=== PATIENT | male | born 1985 | race Caucasian/White ===

== ENCOUNTER 2017-03-06 17:50 | Emergency (ER) | payer MEDICARE, MEDICAID, BC ==
[2017-03-06] MEDS ORDERED: LEVETIRACETAM 1500 MG/NACL-ISO 100 ML IV ONE (18:45)
[2017-03-06] MEDS ORDERED: NORMAL SALINE 1000 ML 1,000 ML IV ONE (18:45)
[2017-03-06] MEDS ORDERED: LEVETIRACETAM INJ/PF 500 MG/5 ML SDV IV ONE (19:14)
[2017-03-06 19:29] LABS: ABSOLUTE BASOPHILS # (AUTO) 0.1 10^3/uL (0.0-0.2); ABSOLUTE EOSINOPHILS # (AUTO) 0.1 10^3/uL (0.0-0.6); ABSOLUTE LYMPHOCYTES (AUTO) 3.6 10^3/uL (0.5-4.7); BASOPHILS % (AUTO) 0.8 % (0-2); HEMATOCRIT 39.6 % (37.9-51.0); HGB HCT DIFFERENCE -0.6; LYMPHOCYTES % (AUTO) 28.2 % (13-45); MEAN CORPUSCULAR HEMOGLOBIN 26.8 pg (27.0-33.4); MEAN CORPUSCULAR HGB CONC 32.8 g/dL (32.0-36.0); MEAN CORPUSCULAR VOLUME 82 fl (80-97); MONOCYTES % (AUTO) 7.5 % (3-13); RED BLOOD COUNT 4.85 10^6/uL (4.35-5.55); RED CELL DISTRIBUTION WIDTH 14.7 % (11.5-14.0); SEGMENTED NEUTROPHILS % (AUTO) 62.5 % (42-78); WHITE BLOOD COUNT 12.8 10^3/uL (4.0-10.5)
[2017-03-06 19:29] LABS: APPEARANCE,URINE CLEAR; BILIRUBIN,URINE NEGATIVE (NEGATIVE); GLUCOSE, URINE NEGATIVE (NEGATIVE); KETONES,URINE NEGATIVE (NEGATIVE); LEUKOCYTE ESTERASE,URINE NEGATIVE (NEGATIVE); NITRITE,URINE NEGATIVE (NEGATIVE); PROTEIN,URINE NEGATIVE (NEGATIVE); URINE SPECIFIC GRAVITY 1.023; UROBILINOGEN,URINE NEGATIVE mg/dL (<2.0)
--- NOTE | 2017-03-06 19:31 | ER Document Report ---
ED Seizure - General Mode of Arrival: Medic Information source: Patient - HPI Patient complains to provider of: History of seizures Current seizure medications: Other - Dilantin Post-ictal symptoms: Headache, Other - Dizziness and lightheadedness Injuries: None <DELPHINE VIZCARRA - Last Filed: 03/06/17 19:55> <NIKJESSICA YVONNE - Last Filed: 03/06/17 20:34> - General Chief Complaint: Probable Seizure Stated Complaint: POSSIBLE SEIZURE Time Seen by Provider: 03/06/17 18:31 Notes: Patient is a 31-year-old male presenting to the emergency department for a possible seizure. Patient has a history of seizures and takes Dilantin 100 mg 3 times per day. Patient states he has missed some of those doses. Patient's seizure occurred just prior to arrival and he states that he was not feeling good so he laid down and then he blacked out for 2-3 minutes. States he awoke in the same position that he was initially in prior to the possible seizure. Patient states that he took Dilantin at 13:00 today. Patient complains of a headache, dizziness and lightheadedness. Patient states that he has not been drinking enough water or fluids. Patient states she does not have a neurologist in the area since he recently moved here. (DELPHINE VIZCARRA) Past Medical History - General Information source: Patient - Social History Smoking Status: Never Smoker Cigarette use (# per day): No Chew tobacco use (# tins/day): No Frequency of alcohol use: None Drug Abuse: None Family History: None Patient has suicidal ideation: No Patient has homicidal ideation: No Neurological Medical History: Reports: Hx Seizures Endocrine Medical History: Reports: Hx Diabetes Mellitus Type 2 Surgical Hx: Negative <DELPHINE VIZCARRA - Last Filed: 03/06/17 19:55> Review of Systems - Review of Systems Constitutional: No symptoms reported EENT: No symptoms reported Cardiovascular: See HPI, Dizziness, Lightheaded Respiratory: No symptoms reported Gastrointestinal: No symptoms reported Genitourinary: No symptoms reported Male Genitourinary: No symptoms reported Musculoskeletal: No symptoms reported Skin: No symptoms reported Hematologic/Lymphatic: No symptoms reported Neurological/Psychological: See HPI, Seizure, Headaches -: Yes All other systems reviewed and negative <DELPHINE VIZCARRA - Last Filed: 03/06/17 19:55> Physical Exam - Vital signs Interpretation: Normal - General General appearance: Appears well, Alert - HEENT Head: Normocephalic, Atraumatic Eyes: Normal Pupils: PERRL Mucous membranes: Dry - Respiratory Respiratory status: No respiratory distress Chest status: Nontender Breath sounds: Normal Chest palpation: Normal - Cardiovascular Rhythm: Regular Heart sounds: Normal auscultation Murmur: No - Abdominal Inspection: Normal Distension: No distension Bowel sounds: Normal Tenderness: Nontender Organomegaly: No organomegaly - Back Back: Normal, Nontender - Extremities General upper extremity: Normal inspection, Nontender, Normal color, Normal ROM , Normal temperature General lower extremity: Normal inspection, Nontender, Normal color, Normal ROM , Normal temperature, Normal weight bearing. No: Jake's sign - Neurological Neuro grossly intact: Yes Cognition: Normal Orientation: AAOx4 [place] Coma Scale Eye Opening: Spontaneous Sally Coma Scale Verbal: Oriented [place] Coma Scale Motor: Obeys Commands Sally Coma Scale Total: 15 Speech: Normal Motor strength normal: LUE, RUE, LLE, RLE Sensory: Normal - Psychological Associated symptoms: Normal affect, Normal mood - Skin Skin Temperature: Warm Skin Moisture: Dry Skin Color: Normal <JESSICA ZARAGOZA - Last Filed: 03/06/17 20:34> - Vital signs Vitals: Resp BP Pulse Ox 15 127/87 H 94 03/06/17 18:06 03/06/17 18:06 03/06/17 18:06 Course - Laboratory Result Diagrams: 03/06/17 19:09 03/06/17 19:09 <DELPHINE VIZCARRA - Last Filed: 03/06/17 19:55> - Laboratory Result Diagrams: 03/06/17 19:09 03/06/17 19:09 <JESSICA ZARAGOZA - Last Filed: 03/06/17 20:34> - Re-evaluation Re-evalutation: 03/06/17 20:33 Patient is a 31-year-old male who believes he had a seizure today. He did not fall or hit his head. Patient states that he felt it coming on he sat down. Patient is supposed to be taking Dilantin but he has not been taking it recently. Work within normal limits. No further seizure activity. Patient has been loaded with Keppra. He is to take his Dilantin at home as prescribed and follow-up with his neurologist. Return if any worsening or concerning symptoms. Stable for discharge. Patient would like to leave as he has a ride but cannot drive after dark. (JESSICA ZARAGOZA) - Vital Signs Vital signs: Temp Pulse Resp BP Pulse Ox 98.0 F 13 115/70 94 03/06/17 18:25 03/06/17 19:01 03/06/17 19:01 03/06/17 19:01 - Laboratory Laboratory results interpreted by me: 03/06/17 19:09 WBC 12.8 H Hgb 13.0 L MCH 26.8 L RDW 14.7 H Discharge <DELPHINE VIZCARRA - Last Filed: 03/06/17 19:55> <JESSICA ZARAGOZA - Last Filed: 03/06/17 20:34> - Discharge Clinical Impression: Seizure Condition: Stable Disposition: HOME, SELF-CARE Instructions: Seizure, Known Epileptic ([facility]) Additional Instructions: Please take your medications as prescribed so you do not have a seizure. Scribe Attestation: 03/06/17 20:34 I personally performed the services described in the documentation, reviewed and edited the documentation which was dictated to the scribe in my presence, and it accurately records my words and actions. (JESSICA ZARAGOZA) Scribe Documentation - Scribe Written by Teresa:: Teresa Chakraborty 03/06/17 19:55 acting as scribe for :: Nik <DELPHINE VIZCARRA - Last Filed: 03/06/17 19:55>
[2017-03-06 19:37] LABS: ANION GAP 10 (5-19); BLOOD UREA NITROGEN 13 mg/dL (7-20); CALCIUM 9.4 mg/dL (8.4-10.2); CARBON DIOXIDE 27 mmol/L (22-30); CHLORIDE 102 mmol/L (98-107); CREATININE RESULT 0.56 mg/dL (0.52-1.25); GLUCOSE 99 mg/dL (75-110); POTASSIUM 4.2 mmol/L (3.6-5.0); SODIUM 138.6 mmol/L (137-145)
[2017-03-06 21:16] VITALS: BP 127/80
== END 2017-03-06 20:26 | disposition home or self-care (01) ==
LOC: ER 17:50
DX: R56.9 Unspecified convulsions (principal); R51 Headache; R42 Dizziness and giddiness
CPT/HCPCS: 99284; 96374; 36415; 82962; 80185; 85025; 80048; 81001; J7030; J1953

== ENCOUNTER 2017-03-31 14:10 | Emergency (ER) | payer MEDICARE, MEDICAID ==
--- NOTE | 2017-03-31 15:04 | ER Document Report ---
ED Medical Screen (RME) - General Chief Complaint: Psych Problem Stated Complaint: SUICIDAL IDEATION Time Seen by Provider: 03/31/17 14:56 Mode of Arrival: Ambulatory Information source: Patient TRAVEL OUTSIDE OF THE [place] IN LAST 30 DAYS: No - HPI Onset: Last week Onset/Duration: Gradual, Constant Quality of pain: No pain Associated Symptoms: None Exacerbated by: Denies Recently seen / treated by doctor: Yes Notes: 03/31/17 15:03 Patient is a 31-year-old male with known history of mental health issues and previous suicide attempts. Patient reports a one-week history of suicidal ideations due to problems with his current living arrangement. Patient denies any actual attempt but does have thoughts of either overdosing or cutting himself. Patient went to [place] yesterday and states he is not better resulting in his ED visit today. - Related Data Allergies/Adverse Reactions: lamotrigine [From Lamictal] Allergy (Verified 03/31/17 14:16) quetiapine [From Seroquel] Allergy (Verified 03/31/17 14:16) Past Medical History - General Information source: Patient, [facility] Records - Social History Frequency of alcohol use: None Drug Abuse: None Pulmonary Medical History: Reports: Hx Asthma Neurological Medical History: Reports: Hx Seizures Endocrine Medical History: Reports: Hx Diabetes Mellitus Type 2 Renal/ Medical History: Denies: Hx Peritoneal Dialysis Past Surgical History: Reports: Hx Orthopedic Surgery - right lower leg Review of Systems - Review of Systems Neurological/Psychological: Suicidal ideation -: Yes All other systems reviewed and negative Physical Exam - Vital signs Vitals: Temp Pulse Resp BP Pulse Ox 98.1 F 100 22 H 131/72 H 95 03/31/17 14:17 03/31/17 14:17 03/31/17 14:17 03/31/17 14:17 03/31/17 14:17 Interpretation: Normal - General General appearance: Appears well, Alert - HEENT Head: Normocephalic, Atraumatic Eyes: Normal Pupils: PERRL - Respiratory Respiratory status: No respiratory distress Chest status: Nontender Breath sounds: Normal Chest palpation: Normal - Cardiovascular Rhythm: Regular Heart sounds: Normal auscultation Murmur: No - Abdominal Inspection: Normal Distension: No distension Bowel sounds: Normal Tenderness: Nontender Organomegaly: No organomegaly - Back Back: Normal, Nontender - Extremities General upper extremity: Normal inspection, Nontender, Normal color, Normal ROM , Normal temperature General lower extremity: Normal inspection, Nontender, Normal color, Normal ROM , Normal temperature, Normal weight bearing. No: Jake's sign - Neurological Neuro grossly intact: Yes Cognition: Normal Orientation: AAOx4 [place] Coma Scale Eye Opening: Spontaneous [place] Coma Scale Verbal: Oriented [place] Coma Scale Motor: Obeys Commands [place] Coma Scale Total: 15 Speech: Normal Motor strength normal: LUE, RUE, LLE, RLE Sensory: Normal - Psychological Associated symptoms: Normal affect, Normal mood - Skin Skin Temperature: Warm Skin Moisture: Dry Skin Color: Normal Course - Re-evaluation Re-evalutation: 03/31/17 15:04 Patient will require medical screening labs prior to mental health evaluation. Patient will be brought to the back treatment area for further evaluation and management per provider that region. - Vital Signs Vital signs: Temp Pulse Resp BP Pulse Ox 98.1 F 100 22 H 131/72 H 95 03/31/17 14:17 03/31/17 14:17 03/31/17 14:17 03/31/17 14:17 03/31/17 14:17
[2017-03-31 15:28] LABS: APPEARANCE,URINE SLIGHTLY-CLOUDY; BILIRUBIN,URINE NEGATIVE (NEGATIVE); GLUCOSE, URINE NEGATIVE (NEGATIVE); KETONES,URINE TRACE mg/dL (NEGATIVE); LEUKOCYTE ESTERASE,URINE TRACE (NEGATIVE); NITRITE,URINE NEGATIVE (NEGATIVE); PROTEIN,URINE 30 mg/dL (NEGATIVE); URINE SPECIFIC GRAVITY 1.035
[2017-03-31 15:33] LABS: ABSOLUTE BASOPHILS # (AUTO) 0.1 10^3/uL (0.0-0.2); ABSOLUTE EOSINOPHILS # (AUTO) 0.1 10^3/uL (0.0-0.6); ABSOLUTE LYMPHOCYTES (AUTO) 2.9 10^3/uL (0.5-4.7); ABSOLUTE MONOCYTES (AUTO) 0.8 10^3/uL (0.1-1.4); ABSOLUTE NEUT (AUTO) 9.1 10^3/uL (1.7-8.2); BASOPHILS % (AUTO) 0.5 % (0-2); EOSINOPHILS % (AUTO) 0.5 % (0-6); HEMATOCRIT 43.6 % (37.9-51.0); HEMOGLOBIN 14.3 g/dL (13.5-17.0); HGB HCT DIFFERENCE -0.7; LYMPHOCYTES % (AUTO) 22.3 % (13-45); MEAN CORPUSCULAR HEMOGLOBIN 27.1 pg (27.0-33.4); MEAN CORPUSCULAR HGB CONC 32.7 g/dL (32.0-36.0); MEAN CORPUSCULAR VOLUME 83 fl (80-97); MONOCYTES % (AUTO) 6.3 % (3-13); RED BLOOD COUNT 5.26 10^6/uL (4.35-5.55); RED CELL DISTRIBUTION WIDTH 14.2 % (11.5-14.0); SEGMENTED NEUTROPHILS % (AUTO) 70.4 % (42-78); WHITE BLOOD COUNT 12.9 10^3/uL (4.0-10.5)
[2017-03-31 15:43] LABS: URINE BARBITURATES SCREEN NEGATIVE; URINE METHADONE SCREEN NEGATIVE; URINE OPIATES LOW NEGATIVE; URINE PHENCYCLIDINE SCREEN NEGATIVE
[2017-03-31 15:52] LABS: ALANINE AMINOTRANSFERASE 37 U/L (21-72); ALBUMIN 4.3 g/dL (3.5-5.0); ALKALINE PHOSPHATASE 101 U/L (38-126); ANION GAP 12 (5-19); ASPARTATE AMINO TRANSFERASE 18 U/L (17-59); BILIRUBIN,DIRECT 0.3 mg/dL (0.0-0.4); BILIRUBIN,TOTAL 0.5 mg/dL (0.2-1.3); BLOOD UREA NITROGEN 10 mg/dL (7-20); CALCIUM 9.7 mg/dL (8.4-10.2); CARBON DIOXIDE 24 mmol/L (22-30); CHLORIDE 101 mmol/L (98-107); CREATININE RESULT 0.63 mg/dL (0.52-1.25); GLUCOSE 181 mg/dL (75-110); POTASSIUM 4.2 mmol/L (3.6-5.0); SODIUM 137.2 mmol/L (137-145); TOTAL PROTEIN 8.1 g/dL (6.3-8.2)
[2017-03-31 15:57] LABS: VALPROIC ACID 64.2 ug/mL (50.0-120.0)
[2017-03-31 15:58] LABS: ALCOHOL < 10 mg/dL (NONE DETECTED)
--- NOTE | 2017-03-31 16:34 | ER Document Report ---
Addendum entered and electronically signed by MICHI GRIFFIN LPC 04/01/17 20: 56: ED Psych Disorder / Suicide - General Chief Complaint: Psych Problem Stated Complaint: SUICIDAL IDEATION Time Seen by Provider: 03/31/17 14:56 Mode of Arrival: Ambulatory TRAVEL OUTSIDE OF THE [place] IN LAST 30 DAYS: No - HPI Notes: Conducted initial psychiatric evaluation on 03/31/2017 at 1730. Patient is a 31 year old male who presented to the ED today voluntarily per [facility] recommendation for SI. Patient reported he called his outpatient provider, [facility], saying he had thought of cutting and they directed him to go to the ED. He identified he has a history of SIB via cutting for release, the last time was a year ago, and those are the kind of thoughts he had which is why he called his outpatient provider. He stated "so far I have not had the guts to put a knife to my wrist to cut and I am praying I never will." He denied SI and was adamant he did not want to kill self or take his life. He stated he is prescribed medication (Depakote Level completed and was 64.2, which is therapeutic, indicating he is taking medications), does not know them off hand, has been going to [facility] for a month, starts groups at [facility] on Wednesday (04/02/2017), and has an appointment next week for medication management. He reported he resides with a roommate here in [place], prior to this he was in [facility], Homeless, and went to [facility] (similar to [facility]) for outpatient MH services. He stated he utilized bus services for transportation. He stated he hopes to be discharged so he can go to [facility] for the 1900 AA meeting. He acknowledged a history of alcohol and drug use and has been clean for 8 months. Patient was alert and oriented. Mood was euthymic with congruent affect. He denied SI/HI, admitted to having thoughts of wanting to cut earlier but not to kill himself, and noted an SIB via cutting history for release versus trying to kill self. He did not appear to be responding to internal stimuli AEB fair eye contact and ability to carrying on dialogue conversation. Thought processes were organized and linear. Conversational speech was WNL for rate, tone and prosody. Intellectual abilities are estimated to be average. Insight, judgment and impulse control were fair AEB calling his outpatient provider about his SIB thoughts and then listening to their recommendation to come to the ED. Diagnosis: 296.80 (F31.9) Unspecified Bipolar and Related Disorder Self reported history of Alcohol and Drug use (reported sober for 8 months) Impression/Plan: Recommendation to discharge patient so he can go directly to [facility] for 1900 AA meeting. Patient does not [place] [address] IVC criteria. He denied SI/HI and there was no observed psychosis. He has outpatient MH services with [facility]. He reported he starts groups Wednesday (04/02/2017) and has medication management appointment next week. He reached out to his provider when having SIB which was the appropriate thing to do. He then listened to their recommendation to come to the ED. Provided patient with an outpatient resource list with emphasis on both MCM numbers. Consulted with Dr. Christianson regarding the management and care of patient. ED Physician in agreement with recommendations. - Related Data Allergies/Adverse Reactions: lamotrigine [From Lamictal] Allergy (Verified 03/31/17 14:16) quetiapine [From Seroquel] Allergy (Verified 03/31/17 14:16) Original Note: ED Psych Disorder / Suicide <MICHI GRIFFIN - Last Filed: 03/31/17 17:51> - General Mode of Arrival: Ambulatory TRAVEL OUTSIDE OF THE [place] IN LAST 30 DAYS: No <RADHA ESTEVES - Last Filed: 03/31/17 18:02> - General Chief Complaint: Psych Problem Stated Complaint: SUICIDAL IDEATION Time Seen by Provider: 03/31/17 14:56 Notes: Says he has been having suicidal thoughts. Also had thoughts of cutting himself last night. Says he is unhappy with his home arrangement. He lives with a roommate. Patient says he has been here once previously with suicidal thoughts. He is followed as an outpatient at [facility], for bipolar disorder, PTSD, and borderline personality defect. He says he is also under treatment for drug dependence. Says he has not had any alcohol in about 6 or 7 months. His mental health provider is out of town this week and unable to see him. He says that he can get in to be seen at [facility] Wednesday as a walk-in. Patient says he does not feel suicidal at this time. (RADHA ESTEVES) - Related Data Allergies/Adverse Reactions: lamotrigine [From Lamictal] Allergy (Verified 03/31/17 14:16) quetiapine [From Seroquel] Allergy (Verified 03/31/17 14:16) Past Medical History - General Information source: Patient, [facility] Records - Social History Smoking Status: Current Every Day Smoker Frequency of alcohol use: None Drug Abuse: None Family History: None - Past Medical History Cardiac Medical History: Reports: Hx Hypercholesterolemia, Hx Hypertension Denies: Hx Coronary Artery Disease Pulmonary Medical History: Reports: Hx Asthma Neurological Medical History: Reports: Hx Seizures Endocrine Medical History: Reports: Hx Diabetes Mellitus Type 2 Psychiatric Medical History: Reports: Hx Bipolar Disorder, Hx Depression, Hx Post Traumatic Stress Disorder, Other - Borderline personality disorder. Past Surgical History: Reports: Hx Orthopedic Surgery - right lower leg <RADHA ESTEVES - Last Filed: 03/31/17 18:02> Review of Systems <MICHI GRIFFIN - Last Filed: 03/31/17 17:51> <RADHA ESTEVES - Last Filed: 03/31/17 18:02> - Review of Systems Notes: REVIEW OF SYSTEMS: CONSTITUTIONAL : Denies fever. EENT: Denies eye, ear, nose or mouth or throat pain or other symptoms. CARDIOVASCULAR: Denies chest pain. RESPIRATORY: Denies cough, chest congestion, or shortness of breath. GASTROINTESTINAL: Denies abdominal pain or nausea, vomiting, or diarrhea. GENITOURINARY: Denies difficulty or painful urinating, urinary frequency, blood in urine. MUSCULOSKELETAL: Denies back or neck pain. Denies joint pain or swelling. SKIN: Denies rash or skin lesions. NEUROLOGICAL: Denies LOC or altered mental status. Denies headache. Denies sensory loss or motor deficits. Psychiatric: See HPI. ALL OTHER SYSTEMS REVIEWED AND NEGATIVE. (RADHA ESTEVES) Physical Exam <MICHI GRIFFIN - Last Filed: 03/31/17 17:51> - Vital signs Interpretation: Normal <RADHA ESTEVES - Last Filed: 03/31/17 18:02> - Vital signs Vitals: Temp Pulse Resp BP Pulse Ox 98.1 F 100 22 H 131/72 H 95 03/31/17 14:17 03/31/17 14:17 03/31/17 14:17 03/31/17 14:17 03/31/17 14:17 - Notes Notes: PHYSICAL EXAMINATION: GENERAL: Well-appearing, in no acute distress. Signs are all normal. Patient is calm and cooperative and answers questions appropriately. HEAD: Atraumatic, normocephalic. EYES: Pupils equal round and reactive to light, extraocular movements intact. ENT: oropharynx clear without exudates. Moist mucous membranes. NECK: Normal range of motion, supple. LUNGS: Breath sounds clear and equal bilaterally. HEART: Regular rate and rhythm without murmurs. ABDOMEN: Soft, nontender. No guarding or rebound. BACK: No tenderness throughout entire back. EXTREMITIES: Normal range of motion without pain. NEUROLOGICAL: Normal speech, normal gait. Normal sensory, motor, and reflex exams. Awake, alert, and oriented x3. Cranial nerves normal. PSYCH: Normal mood, normal affect. Does not seem to be depressed to me. SKIN: Warm, dry, no rashes. (RADHA ESTEVES) Course - Laboratory Result Diagrams: 03/31/17 15:15 03/31/17 15:15 <MICHI GRIFFIN - Last Filed: 03/31/17 17:51> - Laboratory Result Diagrams: 03/31/17 15:15 03/31/17 15:15 <RADHA ESTEVES - Last Filed: 03/31/17 18:02> - Re-evaluation Re-evalutation: 03/31/17 16:34 Patient will have routine lab studies performed. I have requested a consult from mental health. (RADHA ESTEVES) - Vital Signs Vital signs: Temp Pulse Resp BP Pulse Ox 98.1 F 100 22 H 131/72 H 95 03/31/17 14:17 03/31/17 14:17 03/31/17 14:17 03/31/17 14:17 03/31/17 14:17 - Laboratory Laboratory results interpreted by me: 03/31/17 03/31/17 03/31/17 15:08 15:15 15:15 WBC 12.9 H RDW 14.2 H Absolute Neutrophils 9.1 H Glucose 181 H Urine Protein 30 H Urine Ketones TRACE H Urine Urobilinogen 2.0 H Ur Leukocyte Esterase TRACE H Discharge <MICHI GRIFFIN - Last Filed: 03/31/17 17:51> <RADHA ESTEVES - Last Filed: 03/31/17 18:02> - Discharge Clinical Impression: Suicidal ideation Condition: Stable Disposition: HOME, SELF-CARE Additional Instructions: SUICIDAL IDEATION: Suicidal ideation is a common medical term for thoughts about suicide, which may be as detailed as a formulated plan, without the suicidal act itself. Although most people who undergo suicidal ideation do not commit suicide, some go on to make suicide attempts. The range of suicidal ideation varies greatly from fleeting to detailed planning, role playing, and unsuccessful attempts. While thoughts about suicide are common, most people do not carry out serious actions to commit suicide. Based upon your evaluation and discussion with you, we do not believe you are currently at risk to act upon your thoughts of suicide. You have agreed to return to the Emergency Department, at any time , if you feel inclined to act upon your suicidal thoughts. FOLLOW-UP CARE: You should go to [facility] this evening (03/31/2017) for the 1900 Alcoholics Anonymous Meeting that you said you would attend. You should follow up with your already scheduled group counseling Wednesday (04/02/2017) and medication appointment (next week) at [facility]. Referrals: [facility] [Outside] - Follow up in 1 week
[2017-03-31 18:13] VITALS: BP 128/70
--- NOTE | 2017-03-31 19:47 | EKG REPORT ---
SEVERITY:- NORMAL ECG - SINUS RHYTHM : Confirmed by: Dung Garcia MD 31-Mar-2017 19:46:19
== END 2017-03-31 18:07 | disposition home or self-care (01) ==
LOC: ER 14:10
DX: F31.9 Bipolar disorder, unspecified (principal); F43.10 Post-traumatic stress disorder, unspecified; F60.3 Borderline personality disorder; R45.851 Suicidal ideations; F10.21 Alcohol dependence, in remission; I10 Essential (primary) hypertension; E11.9 Type 2 diabetes mellitus without complications; J45.909 Unspecified asthma, uncomplicated; Z91.5 Personal history of self-harm; Z79.899 Other long term (current) drug therapy; Z88.8 Allergy status to other drugs, medicaments and biological substances
CPT/HCPCS: 36415; 80053; 80164; 80307; 81001; 85025; 93005; 93010; 99285

== ENCOUNTER 2017-04-07 10:15 | Emergency (ER) | payer MEDICARE, MEDICAID ==
--- NOTE | 2017-04-07 10:48 | ER Document Report ---
Addendum entered and electronically signed by LIO RODNEY LCSWA 04/09/17 12: 41: ED Psych Disorder / Suicide - General Chief Complaint: Suicidal Ideation Stated Complaint: POSSIBLE SUICIDE ATTEMPT TRAVEL OUTSIDE OF THE [place] IN LAST 30 DAYS: No - HPI Notes: Clinician conducted check in 04/08/2107: Patient states he is planning to move back home to his mother's home. Patient states he is planning to pack a bag, grab his medications and take a bus. He is unsure at this time if he has the money. Chart review indicates patient is not therapeutic on his medications at this time. Clinician spoke with Patient's mother, Tonya, she disclosed she spoke with the patient and knows he will be coming home. He reports he has not been home for 10 years. She states the current payee is [employer] the health social work professor for [employer] in [place], [place]. Patient does not have a legal guardian. She does not have any concerns for the patient. Clinician left message with [employer] [phone]. Clinician spoke with Johanna outpatient case manager from [facility]; she disclosed [facility] in-home team submitted PRTF refferal and it has been approved on March 29, 2017. Clinician conducted Check-in 04/09/2017: Clinician spoke with Tram of [facility]. She confirmed patient is his own guardian. She is currently the payee until it is changed to local payee Apr 20. She continued to disclosed they have submitted for payments but they have not started yet, patient was only in their area for about 2 months before coming to [place]. She states their is no legal or known capacity issue that would impede discharge. Patient seems to have pattern of moving around a lot when things don't go his way. Patient is "extremely savvy and street smart...he is resourceful and makes friends easily. " When patient first arrived in their area he made contact with them and provided all the logistical information (e.g. medicaid)and requested assistance in connecting to local resources. Patient spoke with his mother and she will be purchasing a bus ticket for the patient to come back home. Patient is looking forward to seeing her again. Impression/Plan: Patient is recommended for rescind of IVC and is considered psychiatrically cleared for discharge. Patient is now therapeutic on his medications and has plan of returning to his family home. Patient's mother is in agreement and is purchasing him a bus ticket. Patient denies suicidal and homicidal ideation. Patient does not meet IVC criteria per [place] GS 122C. It is confirmed patient is his own guardian and there is no concern legally or known capacity issues that would impede current discharge plan. Dr. Christianson was consulted on the care and management of this patient; attending physician is in agreement with recommendations and disposition. - Related Data Allergies/Adverse Reactions: lamotrigine [From Lamictal] Allergy (Verified 03/31/17 14:16) quetiapine [From Seroquel] Allergy (Verified 03/31/17 14:16) Home Medications: Current Home Medications Atorvastatin Calcium [Lipitor 10 mg Tablet] 5 mg PO QPM 04/07/17 [History] Bupropion HCl [Wellbutrin Xl 150 mg 24hr Tablet] 150 mg PO QAM 04/07/17 [History ] Buspirone HCl [Buspar 15 mg Tablet] 15 mg PO TID 04/07/17 [History] Divalproex Sodium [Depakote] 1,000 mg PO Q12 04/07/17 [History] Duloxetine HCl [Cymbalta] 120 mg PO QAM 04/07/17 [History] Gabapentin [Neurontin] 800 mg PO Q8 04/07/17 [History] Insulin Glargine,Hum.rec.anlog [Lantus] 30 unit SQ QHS 04/07/17 [History] Linagliptin [Tradjenta] 5 mg PO QAM 04/07/17 [History] Lisinopril [Prinivil 10 mg Tablet] 10 mg PO QAM 04/07/17 [History] Paliperidone Palmitate [Invega Trinza] 156 mg IM [id number] 04/07/17 [History] Phenytoin Sodium Extended [Dilantin] 100 mg PO Q8 04/07/17 [History] Prazosin HCl [Minipress] 2 mg PO QHS 04/07/17 [History] Trazodone HCl 150 mg PO QHS 04/07/17 [History] Discharge - Discharge Clinical Impression: Suicidal ideation, PTSD (post-traumatic stress disorder), Borderline personality disorder, Bipolar disorder, unspecified Condition: Stable Disposition: HOME, SELF-CARE Additional Instructions: Bipolar Disorder Bipolar disorder is also called manic-depressive disorder. Depression alternates with brain hyperactivity called john. Each phase lasts from several days to a few weeks. We don't know exactly what causes bipolar disorder , but it's treatable. During the "manic phase," you may feel elated and energetic. You may have racing thoughts, rapid speech, increased activity, and grandiose ideas. During this time, you may not realize how poor your judgement is. Inappropriate spending, drug abuse, excessive alcohol use, marriage problems, and irresponsible sexual behavior are common during the manic phase. During the "depressive phase," you might feel depressed, guilty, worthless , fatigued, and unable to concentrate. You might have thoughts of suicide. Good treatments are available for bipolar disorder. [place] is a classic drug for bipolar disorder, and is still often useful. If the manic phase is very mild, an antidepressant alone can be prescribed. If the manic phase is very severe, an antipsychotic medicine (such as Haldol) may be needed. The treatment must be matched to your symptoms, so it's important to work closely with your psychiatric care provider. Contact your physician, the hospital emergency center, crisis line, or your counsellor if you are losing control or having self-destructive thoughts. DEPRESSION: Your evaluation reveals that you have mental depression. While symptoms may be vague, they often include disturbance of sleep, fatigue, loss of appetite , and general loss of interest in life. While depression may be a side effect of drugs, or a reaction to a major change in your life, many cases have no known cause. If depression is acute, and related to a major loss in your life, you can expect it to clear completely with time. If you have been depressed a long time , are prone to repeated bouts of depression or low mood, or have been thinking of suicide, get help. Depression can be treated with anti-depressant medication and counselling. Long-term depression will often take a few weeks to clear, even with appropriate medication. Follow-up care is important. SUICIDAL IDEATION: Suicidal ideation is a common medical term for thoughts about suicide, which may be as detailed as a formulated plan, without the suicidal act itself. Although most people who undergo suicidal ideation do not commit suicide, some go on to make suicide attempts. The range of suicidal ideation varies greatly from fleeting to detailed planning, role playing, and unsuccessful attempts. While thoughts about suicide are common, most people do not carry out serious actions to commit suicide. Based upon your evaluation and discussion with you, we do not believe you are currently at risk to act upon your thoughts of suicide. You have agreed to return to the Emergency Department, at any time , if you feel inclined to act upon your suicidal thoughts. FOLLOW-UP CARE: Please follow up with our out patient mental health provider, [facility] tomorrow 04/08/2017. If you experience worsening or a significant change in your symptoms, notify the physician immediately or return to the Emergency Department at any time for re-evaluation. Referrals: [facility] [Outside] - Follow up tomorrow Original Note: ED Psych Disorder / Suicide - General Information source: Patient TRAVEL OUTSIDE OF THE [place] IN LAST 30 DAYS: No - HPI Patient complains to provider of: Suicidal ideation Onset: Yesterday Onset was: Gradual Quality of pain: Other - See above Severity: Mild Pain Level: 1 Suicide Risk Factors: Other - See above Suicide Attempt Method: Other - See above Normal mood: Yes Associated symptoms: Other - See above Similar symptoms previously: Yes Recently seen / treated by doctor: Yes <MICHAEL FRIEDMAN - Last Filed: 04/07/17 18:00> <LIO RODNEY - Last Filed: 04/09/17 11:15> <LYUBOV HARRIS - Last Filed: 04/09/17 13:19> - General Chief Complaint: Suicidal Ideation Stated Complaint: POSSIBLE SUICIDE ATTEMPT Notes: 31-year-old male with past medical history of bipolar, PTSD, borderline personality disorder, and insulin-dependent diabetes who presents today with suicidal ideations as well as auditory command hallucinations. Patient states that history of suicide attempt in the past. Patient does have a psychiatrist. Patient states recent exacerbation of his home living situation as he was "kicked out" of where he lives. Patient denies any pain, nausea, vomiting, or fevers. He states he did not take his Lantus insulin last night. He states he has been taking his psychiatric medications. (MICHAEL FRIEDMAN) - HPI Notes: Per ems: pt from home with c/o SI and reports plan would be to "overdose on my medications." No recent attempt. He reports he lost his home and has been temporarily staying with a friend. hx of drug abuse but reports he hasnt used any illegal drugs since August. He reports he has been compliant with all of his medications except Lantus. Patient states he called [facility] and they called the police and brought him here. Patient state he came to [facility] because is has been having suicidal thoughts with a plan. When asked what his plan is, patient state he would take all the medication he could get a hold of. Patient continued to state that he has been feeling this way for 2 days. When asked what the stressor was that started his thoughts, patient stated it was because he was kicked out of the house he lives in. Patient states his significant other lives in [place] and his parents live in [place], [place]. He came to [facility] to live at the [facility] but he left became "they were bullying me. " Patient states was stating in a private home. Clinician noted the patient's plan was different from the last time he was seen in [facility]. Patient states "ya " Patient states he has no where to stay and "I can't walk around the city all day." Clinician asked if patient has a legal guardian and he stated no he was his own guardian. Clinician offered resources such as fdc information; patient became agitated and asked to call his "payee." Patient made phone call and stated he was allow to come back to the house again and would like to go. Clinician contacted [facility]; received confirmation patient is his own guardian. Patient is alert and orientated to person, place, time and circumstance. Patient endorses suicidal ideation, no plans, means or intent verified. Patient has provided two different ideas in the last 7 days and disclosed he has been having suicidal ideation for only 2 days. Patient appears to have below average intellectual development and it appears patient states suicidal ideation as a way to communicate his emotions. Patient's disclosure of different suicidal plans within a 7 day period is more congruent with passive suicidal ideation with no full plan. patient is not demonstrating any behaviour congruent with responding to internal stimuli. no delusions are noted. Thought process is organized and linear. Thought content is focused on obtaining fdc. Eye contact was good. Attention and concentration are good. Insight, judgment and impulse control are going to by historically poor because of below average intelligence. 296.80 (F31.9) Unspecified Bipolar per history provided by patient 309.81 (F43.10) Posttraumatic Stress Disorder per history provided by patient 301.83 (F60.3) Borderline Personality Disorder per history provided by patient R.O IDD Impression/plan:Patient is considered psychiatrically cleared for discharge. Patient does not meet IVC criteria per [place] 122C. Patient denies suicidal ideation once it was identified he could return to where he lives. Patient has presented to [facility] twice in 7 days for reported suicidal ideation with very different plans (e.g. cutting and taking pills). This is more congruent with passive suicidal ideation will no formalized plan. Patient is his own guardian and it was confirmed with [employer]. Patient receives his mental health services through [facility]. Patient is recommended to continue out patient services. Clinician notes patient verbalized he was having hallucinations to [facility] staff but did not mention it to clinician. Patient is not demonstrating any behaviours congruent with responding to internal stimuli 9e.g good eye contact, organized and linear thought processes, normal conversational speech patterns. Dr. Christianson was consulted on the care and management of this patient; attending physician is not in agreement with recommendations and disposition. (LIO RODNEY) - Related Data Allergies/Adverse Reactions: lamotrigine [From Lamictal] Allergy (Verified 03/31/17 14:16) quetiapine [From Seroquel] Allergy (Verified 03/31/17 14:16) Past Medical History - General Information source: Patient - Social History Smoking Status: Unknown if Ever Smoked Cigarette use (# per day): No Chew tobacco use (# tins/day): No Smoking Education Provided: No Frequency of alcohol use: None Drug Abuse: Other Family History: None - Past Medical History Cardiac Medical History: Reports: Hx Hypercholesterolemia, Hx Hypertension Denies: Hx Coronary Artery Disease Pulmonary Medical History: Reports: Hx Asthma Neurological Medical History: Reports: Hx Seizures Endocrine Medical History: Reports: Hx Diabetes Mellitus Type 2 Renal/ Medical History: Denies: Hx Peritoneal Dialysis Psychiatric Medical History: Reports: Hx Bipolar Disorder, Hx Depression, Hx Post Traumatic Stress Disorder Past Surgical History: Reports: Hx Orthopedic Surgery - right lower leg <MICHAEL FRIEDMAN - Last Filed: 04/07/17 18:00> Review of Systems - Review of Systems Constitutional: denies: Fever EENT: denies: Eye discharge, Nose discharge Cardiovascular: denies: Chest pain, Palpitations, Heart racing Respiratory: denies: Short of breath Gastrointestinal: denies: Vomiting Genitourinary: denies: Dysuria Musculoskeletal: denies: Leg swelling Skin: Other - no hives. denies: Rash Neurological/Psychological: Other - no slurred speech -: Yes All other systems reviewed and negative <MICHAEL FRIEDMAN - Last Filed: 04/07/17 18:00> Physical Exam <MICHAEL FRIEDMAN - Last Filed: 04/07/17 18:00> <LIO RODNEY - Last Filed: 04/09/17 11:15> <LYUBOV HARRIS - Last Filed: 04/09/17 13:19> - Vital signs Vitals: Temp Pulse Resp BP Pulse Ox 98.3 F 89 18 137/70 H 96 04/07/17 10:37 04/07/17 10:37 04/07/17 10:37 04/07/17 10:37 04/07/17 10:37 Notes: Reviewed vital signs and nursing note as charted by RN. CONSTITUTIONAL: Alert and oriented and responds appropriately to questions. Well -appearing; well-nourished HEAD: Normocephalic; atraumatic EYES: PERRL; no nystagmus ENT: Normal nose; no rhinorrhea; moist mucous membranes; pharynx without lesions noted NECK: Supple without meningismus; non-tender; no cervical lymphadenopathy, no masses CARD: Regular rate and rhythm; no murmurs, no clicks, no rubs, no gallops; symmetric distal pulses RESP: Normal chest excursion without splinting or tachypnea; breath sounds clear and equal bilaterally ABD/GI: Normal bowel sounds; non-distended; soft, non-tender BACK: The back appears normal and is non-tender to palpation, there is no CVA tenderness EXT: Normal ROM in all joints; non-tender to palpation; no cyanosis, no effusions, no edema SKIN: Normal color for age and race; warm; dry; good turgor; capillary refill < 2 seconds; no acute lesions noted NEURO: CN 2-12 intact. Moves all extremities equally; Motor and sensory function intact PSYCH: Pt has delusions and hallucinations (MICHAEL FRIEDMAN) Course - Laboratory Result Diagrams: 04/07/17 10:28 04/07/17 10:28 <MICHAEL FRIEDMAN - Last Filed: 04/07/17 18:00> - Laboratory Result Diagrams: 04/07/17 10:28 04/07/17 10:28 <LIO RODNEY - Last Filed: 04/09/17 11:15> - Laboratory Result Diagrams: 04/07/17 10:28 04/07/17 10:28 <LYUBOV HARRIS - Last Filed: 04/09/17 13:19> - Re-evaluation Re-evalutation: 04/07/17 10:47 Given the history and physical examination we will order the psychiatric profile laboratory values, obtain a sitter, and consult behavioral health. 04/07/17 11:31 Labs as recorded. 04/07/17 18:00 Patient supposedly has now some on willing to let him live with them. He denies any suicidal ideations at this time. Given the suicide attempt in the past, suicidal ideations today, auditory hallucinations, I believe it prudent to at least observe the patient overnight and reassess in the morning for patient safety. (MICHAEL FRIEDMAN) 04/09/17 13:17 Patient has talked to his mother in [place] who has bought him a bus ticket, he will stay with a friend this evening and then he will get on the bus at 830 tomorrow morning to go and live with his parents in [facility]. Patient does not meet IVC criteria, patient will be discharged to home. No complaints of or evidence of suicidal ideation at this time. Already has his medications and does not need them refilled (LYUBOV HARRIS) - Vital Signs Vital signs: Temp Pulse Resp BP Pulse Ox 97.5 F 63 16 119/65 98 04/09/17 10:05 04/09/17 10:05 04/09/17 10:05 04/09/17 10:05 04/09/17 10:05 04/07/17 11:20 EKG shows a heart rate of 80, normal sinus rhythm, normal axis, no obvious ST elevation or depression. Narrow QRS. (MICHAEL FRIEDMAN) - Laboratory Laboratory results interpreted by me: 04/07/17 04/07/17 04/07/17 10:28 10:28 10:28 RDW 14.5 H Glucose 143 H POC Glucose Total Protein 8.3 H Urine Ketones 20 H Salicylates < 1.0 L Acetaminophen < 10 L Valproic Acid 04/07/17 04/08/17 04/08/17 10:28 09:47 20:37 RDW Glucose POC Glucose 133 H 127 H Total Protein Urine Ketones Salicylates Acetaminophen Valproic Acid 43.4 L Discharge <MICHAEL FRIEDMAN - Last Filed: 04/07/17 18:00> <LIO RODNEY - Last Filed: 04/09/17 11:15> <LYUBOV HARRIS - Last Filed: 04/09/17 13:19> - Discharge Clinical Impression: Suicidal ideation, PTSD (post-traumatic stress disorder), Borderline personality disorder Bipolar disorder, unspecified Qualifiers: Active/Remission status: remission status unspecified Qualified Code(s): F31.9 - Bipolar disorder, unspecified Clinical Impression: (Ruled Out): Hallucinations Condition: Stable Disposition: HOME, SELF-CARE Additional Instructions: Bipolar Disorder Bipolar disorder is also called manic-depressive disorder. Depression alternates with brain hyperactivity called jonh. Each phase lasts from several days to a few weeks. We don't know exactly what causes bipolar disorder , but it's treatable. During the "manic phase," you may feel elated and energetic. You may have racing thoughts, rapid speech, increased activity, and grandiose ideas. During this time, you may not realize how poor your judgement is. Inappropriate spending, drug abuse, excessive alcohol use, marriage problems, and irresponsible sexual behavior are common during the manic phase. During the "depressive phase," you might feel depressed, guilty, worthless , fatigued, and unable to concentrate. You might have thoughts of suicide. Good treatments are available for bipolar disorder. [place] is a classic drug for bipolar disorder, and is still often useful. If the manic phase is very mild, an antidepressant alone can be prescribed. If the manic phase is very severe, an antipsychotic medicine (such as Haldol) may be needed. The treatment must be matched to your symptoms, so it's important to work closely with your psychiatric care provider. Contact your physician, the hospital emergency center, crisis line, or your counsellor if you are losing control or having self-destructive thoughts. DEPRESSION: Your evaluation reveals that you have mental depression. While symptoms may be vague, they often include disturbance of sleep, fatigue, loss of appetite , and general loss of interest in life. While depression may be a side effect of drugs, or a reaction to a major change in your life, many cases have no known cause. If depression is acute, and related to a major loss in your life, you can expect it to clear completely with time. If you have been depressed a long time , are prone to repeated bouts of depression or low mood, or have been thinking of suicide, get help. Depression can be treated with anti-depressant medication and counselling. Long-term depression will often take a few weeks to clear, even with appropriate medication. Follow-up care is important. SUICIDAL IDEATION: Suicidal ideation is a common medical term for thoughts about suicide, which may be as detailed as a formulated plan, without the suicidal act itself. Although most people who undergo suicidal ideation do not commit suicide, some go on to make suicide attempts. The range of suicidal ideation varies greatly from fleeting to detailed planning, role playing, and unsuccessful attempts. While thoughts about suicide are common, most people do not carry out serious actions to commit suicide. Based upon your evaluation and discussion with you, we do not believe you are currently at risk to act upon your thoughts of suicide. You have agreed to return to the Emergency Department, at any time , if you feel inclined to act upon your suicidal thoughts. FOLLOW-UP CARE: Please follow up with our out patient mental health provider, [facility] tomorrow 04/08/2017. If you experience worsening or a significant change in your symptoms, notify the physician immediately or return to the Emergency Department at any time for re-evaluation. Referrals: [facility] [Outside] - Follow up tomorrow Discharge <MICHAEL FRIEDMAN - Last Filed: 04/07/17 18:00> <LIO RODNEY - Last Filed: 04/09/17 11:15> <LYUBOV HARRIS - Last Filed: 04/09/17 13:19> - Discharge Clinical Impression: Suicidal ideation, PTSD (post-traumatic stress disorder), Borderline personality disorder Bipolar disorder, unspecified Qualifiers: Active/Remission status: remission status unspecified Qualified Code(s): F31.9 - Bipolar disorder, unspecified Condition: Stable Disposition: HOME, SELF-CARE Additional Instructions: Bipolar Disorder Bipolar disorder is also called manic-depressive disorder. Depression alternates with brain hyperactivity called john. Each phase lasts from several days to a few weeks. We don't know exactly what causes bipolar disorder , but it's treatable. During the "manic phase," you may feel elated and energetic. You may have racing thoughts, rapid speech, increased activity, and grandiose ideas. During this time, you may not realize how poor your judgement is. Inappropriate spending, drug abuse, excessive alcohol use, marriage problems, and irresponsible sexual behavior are common during the manic phase. During the "depressive phase," you might feel depressed, guilty, worthless , fatigued, and unable to concentrate. You might have thoughts of suicide. Good treatments are available for bipolar disorder. [place] is a classic drug for bipolar disorder, and is still often useful. If the manic phase is very mild, an antidepressant alone can be prescribed. If the manic phase is very severe, an antipsychotic medicine (such as Haldol) may be needed. The treatment must be matched to your symptoms, so it's important to work closely with your psychiatric care provider. Contact your physician, the hospital emergency center, crisis line, or your counsellor if you are losing control or having self-destructive thoughts. DEPRESSION: Your evaluation reveals that you have mental depression. While symptoms may be vague, they often include disturbance of sleep, fatigue, loss of appetite , and general loss of interest in life. While depression may be a side effect of drugs, or a reaction to a major change in your life, many cases have no known cause. If depression is acute, and related to a major loss in your life, you can expect it to clear completely with time. If you have been depressed a long time , are prone to repeated bouts of depression or low mood, or have been thinking of suicide, get help. Depression can be treated with anti-depressant medication and counselling. Long-term depression will often take a few weeks to clear, even with appropriate medication. Follow-up care is important. SUICIDAL IDEATION: Suicidal ideation is a common medical term for thoughts about suicide, which may be as detailed as a formulated plan, without the suicidal act itself. Although most people who undergo suicidal ideation do not commit suicide, some go on to make suicide attempts. The range of suicidal ideation varies greatly from fleeting to detailed planning, role playing, and unsuccessful attempts. While thoughts about suicide are common, most people do not carry out serious actions to commit suicide. Based upon your evaluation and discussion with you, we do not believe you are currently at risk to act upon your thoughts of suicide. You have agreed to return to the Emergency Department, at any time , if you feel inclined to act upon your suicidal thoughts. FOLLOW-UP CARE: [place] at 830 tomorrow [place] with your bus ticket so that you may go live with her family in [place]. Please do not miss this. Your mother has already paid for a bus ticket for you. If you experience worsening or a significant change in your symptoms, notify the physician immediately or return to the Emergency Department at any time for re-evaluation.
[2017-04-07 10:51] LABS: APPEARANCE,URINE CLEAR; BILIRUBIN,URINE NEGATIVE (NEGATIVE); GLUCOSE, URINE NEGATIVE (NEGATIVE); KETONES,URINE 20 mg/dL (NEGATIVE); LEUKOCYTE ESTERASE,URINE NEGATIVE (NEGATIVE); NITRITE,URINE NEGATIVE (NEGATIVE); PROTEIN,URINE NEGATIVE (NEGATIVE); URINE SPECIFIC GRAVITY 1.027; UROBILINOGEN,URINE NEGATIVE mg/dL (<2.0)
[2017-04-07 10:53] LABS: ABSOLUTE BASOPHILS # (AUTO) 0.1 10^3/uL (0.0-0.2); ABSOLUTE MONOCYTES (AUTO) 0.8 10^3/uL (0.1-1.4); ABSOLUTE NEUT (AUTO) 7.1 10^3/uL (1.7-8.2); BASOPHILS % (AUTO) 0.5 % (0-2); EOSINOPHILS % (AUTO) 0.4 % (0-6); HEMATOCRIT 41.7 % (37.9-51.0); HGB HCT DIFFERENCE 0.3; LYMPHOCYTES % (AUTO) 19.8 % (13-45); MEAN CORPUSCULAR HEMOGLOBIN 27.6 pg (27.0-33.4); MEAN CORPUSCULAR HGB CONC 33.6 g/dL (32.0-36.0); MEAN CORPUSCULAR VOLUME 82 fl (80-97); MONOCYTES % (AUTO) 7.9 % (3-13); RED BLOOD COUNT 5.06 10^6/uL (4.35-5.55); RED CELL DISTRIBUTION WIDTH 14.5 % (11.5-14.0); SEGMENTED NEUTROPHILS % (AUTO) 71.4 % (42-78)
[2017-04-07 11:20] LABS: ALANINE AMINOTRANSFERASE 38 U/L (21-72); ALBUMIN 4.5 g/dL (3.5-5.0); ALKALINE PHOSPHATASE 116 U/L (38-126); ANION GAP 13 (5-19); ASPARTATE AMINO TRANSFERASE 19 U/L (17-59); BILIRUBIN,DIRECT 0.4 mg/dL (0.0-0.4); BILIRUBIN,TOTAL 0.6 mg/dL (0.2-1.3); BLOOD UREA NITROGEN 12 mg/dL (7-20); CALCIUM 9.4 mg/dL (8.4-10.2); CARBON DIOXIDE 24 mmol/L (22-30); CHLORIDE 102 mmol/L (98-107); GLUCOSE 143 mg/dL (75-110); POTASSIUM 4.4 mmol/L (3.6-5.0); TOTAL PROTEIN 8.3 g/dL (6.3-8.2)
[2017-04-07 11:22] LABS: ALCOHOL < 10 mg/dL (NONE DETECTED)
[2017-04-07 11:29] LABS: URINE BARBITURATES SCREEN NEGATIVE; URINE METHADONE SCREEN NEGATIVE; URINE OPIATES LOW NEGATIVE; URINE PHENCYCLIDINE SCREEN NEGATIVE
--- NOTE | 2017-04-07 12:03 | EKG REPORT ---
SEVERITY:- NORMAL ECG - SINUS RHYTHM : Confirmed by: Tatiana Saldana MD 07-Apr-2017 12:02:24
[2017-04-07 14:38] LABS: ADD ON TESTING BLD IN LAB ACKNOWLEDGE
[2017-04-07 14:54] LABS: VALPROIC ACID 43.4 ug/mL (50.0-120.0)
[2017-04-08] MEDS ORDERED: DIVALPROEX SODIUM 500 MG TAB.SR.24H PO ONE (09:25)
[2017-04-08] MEDS ORDERED: BUPROPION HCL 100 MG TABLET PO ONE (09:25)
[2017-04-08] MEDS ORDERED: BUSPIRONE HCL 10 MG TABLET PO ONE (09:25)
[2017-04-08] MEDS ORDERED: TRAZODONE HCL 50 MG TABLET PO ONE (09:31)
[2017-04-08] MEDS ORDERED: LISINOPRIL 10 MG TABLET PO ONE (09:31)
[2017-04-08] MEDS ORDERED: PHENYTOIN SODIUM EXTENDED 100 MG CAPSULE PO ONE (09:31)
[2017-04-08] MEDS ORDERED: DULOXETINE HCL 30 MG CAPSULE.DR PO ONE (09:31)
[2017-04-08] MEDS ORDERED: (PENDING PHARMACY ID) (Divalproex Sodium [Depakote] 1,000 MG) PO SCH (22:00)
[2017-04-08] MEDS ORDERED: TRAZODONE HCL 50 MG TABLET PO SCH (22:00)
[2017-04-08] MEDS: BUSPIRONE HCL 10 MG TABLET PO SCH (22:17)
[2017-04-08] MEDS: PHENYTOIN SODIUM EXTENDED 100 MG CAPSULE PO SCH (22:17)
[2017-04-08] MEDS: DIVALPROEX SODIUM 250 MG TABLET.DR PO SCH (22:18)
[2017-04-08] MEDS: GABAPENTIN 400 MG CAPSULE PO SCH (22:18)
[2017-04-09] MEDS: GABAPENTIN 400 MG CAPSULE PO SCH (05:53)
[2017-04-09] MEDS: BUSPIRONE HCL 10 MG TABLET PO SCH (05:53)
[2017-04-09] MEDS: PHENYTOIN SODIUM EXTENDED 100 MG CAPSULE PO SCH (05:53)
[2017-04-09] MEDS ORDERED: (PENDING PHARMACY ID) (Duloxetine Hcl [Cymbalta] 120 MG) PO SCH (08:00)
[2017-04-09] MEDS: DIVALPROEX SODIUM 250 MG TABLET.DR PO SCH (09:57)
[2017-04-09] MEDS ORDERED: DULOXETINE HCL 30 MG CAPSULE.DR PO SCH (10:00)
[2017-04-09 13:42] VITALS: BP 138/77
== END 2017-04-09 13:43 | disposition home or self-care (01) ==
LOC: ER 10:15
DX: F43.10 Post-traumatic stress disorder, unspecified (principal); F60.3 Borderline personality disorder; F31.9 Bipolar disorder, unspecified; Z79.899 Other long term (current) drug therapy
CPT/HCPCS: 93005; 99284; 36415; 82962; 80307 ×4; 85025; 80053; 81001; 80164; 93010; A9270 ×5